=== PATIENT | female | born 1985 | race Caucasian/White ===

== ENCOUNTER 2017-05-17 16:19 | Emergency (ER) | payer MEDICAID ==
--- NOTE | 2017-05-17 17:00 | EDPHY ---
H & P Time Seen by Provider: 05/17/17 16:44 HPI/ROS: CHIEF COMPLAINT: Right knee pain HISTORY OF PRESENT ILLNESS: 31-year-old female with prior remote history of bilateral knee surgeries complaining of right knee pain and swelling after going skiing yesterday. This was her 1st day skiing this season. No direct trauma or fall. Noticed mild nausea pain when she was leaving there yesterday however when she woke this morning she noticed significant swelling and reproducible pain with range of motion. Limited weight-bearing ability. Used her home crutches. No paresthesia. No discoloration. No fever chills no flu- like symptoms. PHYSICAL EXAM (Prior to examination, patient consented to physical exam, hands were washed and my usual and customary physical exam procedures followed) 1) GENERAL: Well-developed, well-nourished, alert and oriented. Appears to be in no acute distress. 2) HEAD: Normocephalic 3) HEENT: Pupils equal, round, reactive to light bilaterally. 4) LUNGS: Breathing comfortably. 5) MUSCULOSKELETAL: Exam of the right knee shows diffusion . Full extension, flexion to 90 degrees. Tender to palpation lateral aspect dyspnea. Compartments are soft. 6) SKIN: normal color normal temperature 7) VASCULAR: DP,PT pulses and cap refill present and brisk distally DIFFERENTIAL DIAGNOSIS: in no particular order including but not limited to fracture, sprain, compartment syndrome, septic arthritis, DVT Patient observed crutch walking with success. She has her own pre-hospital crutches Procedure: Splint A knee immobilizer splint was applied by ER office technician. After application of the splint I returned and re-examined the patient. The splint was adequately immobilizing the joint and distal to the splint the patient's circulation and sensation were intact. Patient shows no signs of compartment syndrome. Was given orthopedic precautions. MEDICAL DECISION MAKING Serial evaluations performed on patient. I discussed the limitations of x-ray in diagnosis of knee pain and injury. At this time I do not think that emergent MRI is currently indicated. However, I have recommended follow-up with Orthopedic surgery and provided this referral information. Informed the patient that outpatient MRI may be indicated. Doubt septic arthritis. Doubt compartment syndrome. Doubt DVT.Care of patient under supervision of secondary supervising physician Dr Zavala . Offered analgesia which she declines Smoking Status: Never smoked Constitutional: Initial Vital Signs Temperature (C) 36.6 C 05/17/17 16:22 Heart Rate 87 05/17/17 16:22 Respiratory Rate 16 05/17/17 16:22 Blood Pressure 131/76 H 05/17/17 16:22 O2 Sat (%) 98 05/17/17 16:22 O2 Delivery Mode Room Air Allergies/Adverse Reactions: No Known Allergies Allergy (Verified 05/17/17 16:21) Home Medications: Medication Instructions Recorded NK [No Known Home Meds] 05/17/17 MDM/Departure - Depart Disposition: Home, Routine, Self-Care Clinical Impression: Right knee pain Qualifiers: Chronicity: acute Qualified Code(s): M25.561 - Pain in right knee Condition: Good Instructions: Knee Sprain (ED) Additional Instructions: Return to the ER immediately if you experience discoloration, have worsening pain, numbness, tingling, or any other symptoms that concern you. If you received x-rays in the emergency department today, be advised, that ligamentous , tendon, muscular, and other non-bony injury cannot be fully ruled out. Try to keep your affected extremity elevated above the level of your chest, and keep cold packs on the affected area, for the next 48 hours. Referrals: London Cuevas MD [Medical Doctor] - 2-3 days, call for appt. (Dr. London Cuevas is orthopedic doctor)
[2017-05-17 17:45] VITALS: BP 119/72; PULSE 76; RESP 18; TEMP 98.8; O2SAT 96
== END 2017-05-17 17:45 | disposition home or self-care (01) ==
DX: M25.561 Pain in right knee (principal)
CPT/HCPCS: L1830

== ENCOUNTER 2017-11-23 03:23 | Emergency (ER) | payer MEDICAID ==
[2017-11-23 04:33] LABS: PLATELET COUNT 114 10^3/uL (150-400)
--- NOTE | 2017-11-23 05:36 | EDPHY ---
H & P Stated Complaint: heavy bleeding- poss miscarrage Time Seen by Provider: 11/23/17 03:31 HPI/ROS: HPI The patient presents with vaginal bleeding for the last 1 day which has become heavy using about 1 pad per hour for the last several hours associated with lower abdominal cramping. The patient is at 6 weeks estimated gestational age by LMP. She is concerned that she could be having a miscarriage. She has not had an ultrasound or any blood work during this yet. She is followed by the [facility].. REVIEW OF SYSTEMS Constitutional: No fever, no chills. Eyes: No discharge. ENT: No sore throat. Cardiovascular: No chest pain, no palpitations. Respiratory: No cough, no shortness of breath. Gastrointestinal: No abdominal pain, no vomiting. Genitourinary: No hematuria. Musculoskeletal: No back pain. Skin: No rashes. Neurological: No headache. PMHx: History of idiopathic thrombocytopenia Soc Hx: Housed with her children PHYSICAL General Appearance: Alert, no distress Eyes: Pupils equal and round no pallor or injection ENT, Mouth: Mucous membranes moist Respiratory: There are no retractions, lungs are clear to auscultation Cardiovascular: Regular rate and rhythm Gastrointestinal: Abdomen is soft and non-tender, no masses, bowel sounds normal : Speculum exam reveals small amount of blood clots in the vaginal vault, os is open Neurological: A&O, moves all extremities Skin: Warm and dry, no rashes Musculoskeletal: Neck is supple non tender Extremities: symmetrical, full range of motion Psychiatric: Patient is oriented X 3, there is no agitation Source: Patient Exam Limitations: No limitations - Personal History Current Tetanus Diphtheria and Acellular Pertussis (TDAP): Yes - Medical/Surgical History Hx Asthma: No Hx Chronic Respiratory Disease: No Hx Diabetes: No Hx Cardiac Disease: No Hx Renal Disease: No Hx Cirrhosis: No Hx Alcoholism: No Hx HIV/AIDS: No Hx Splenectomy or Spleen Trauma: No Other PMH: R knee injuries in past - Social History Smoking Status: Never smoked Constitutional: Initial Vital Signs Temperature (C) 36.6 C 11/23/17 03:25 Heart Rate 86 11/23/17 03:25 Respiratory Rate 20 11/23/17 03:25 Blood Pressure 126/78 H 11/23/17 03:25 O2 Sat (%) 99 11/23/17 03:25 O2 Delivery Mode Room Air Allergies/Adverse Reactions: No Known Allergies Allergy (Verified 11/23/17 03:25) Home Medications: Medication Instructions Recorded NK [No Known Home Meds] 05/17/17 Medical Decision Making Differential Diagnosis: This is a 31-year-old at 6 weeks estimated gestational age by LMP who presents with several hours of vaginal bleeding and cramping, using up to 1 pad per hour. On exam, vital signs are stable. She has minimal lower abdominal tenderness. Pelvic exam reveals small amount of blood clots in the vaginal vault with open cervix. Ultrasound performed demonstrates no IUP seen though products of conception in the lower uterine segment measuring up to 2.3 cm. Labs demonstrate elevated serum HCG, hemoglobin is stable. Her platelets are low and she does have a history of idiopathic thrombocytopenia. They are not low enough to require transfusion. Patient's bleeding improved while she was in the emergency department. I consulted with the on-call homebirth midwife from her usual homebirth midwife Ketty To. She recommends follow-up later today and she will call the patient at home to arrange for this. The patient is comfortable going home and this is her wish. I have advised her to rest today, take ibuprofen as needed for pain. She will need to return to the emergency department if her bleeding is worse in any way and she is able to do this. She will be discharged home. I have referred the patient to Family Medicine doctor on-call given she does not have any primary care doctor and on review of her laboratory testing it seems that she has chronic thrombocytopenia that has not been evaluated and she may benefit from an evaluation. - Data Points Laboratory Results: Laboratory Results 11/23/17 04:12 11/23/17 04:12 Departure - Departure Disposition: Home, Routine, Self-Care Clinical Impression: Spontaneous , Thrombocytopenia Condition: Good Instructions: Miscarriage (ED) Additional Instructions: Please return to the emergency department if your worse in any way, bleeding more than 1 pad per hour. I recommend you take ibuprofen 400 mg every 6 hr as needed for pain. Your midwives will follow up with you later today via phone call. We did notice that again your platelets are low. I would like for you to follow up with the primary care physician listed below for a repeat platelet check in about 1 month. If the platelets continued to be low, you may need follow-up with a specialist. Referrals: Ketty To CNM [Certified Nurse Blow Mold Machine Operator] - As per Instructions Elizabeth Mcbride MD [Medical Doctor] - As per Instructions
[2017-11-23 05:47] VITALS: BP 109/67
== END 2017-11-23 05:45 | disposition home or self-care (01) ==
DX: O03.9 Complete or unspecified spontaneous abortion without complication (principal); O36.8290 Fetal anemia and thrombocytopenia, unspecified trimester, not applicable or unspecified; Z3A.01 Less than 8 weeks gestation of pregnancy